=== PATIENT | male | born 1970 | race Two or more races ===

== ENCOUNTER 2017-09-02 17:52 | Emergency (ER) | payer OTHER ==
[~2017-09-02] VITALS: Ht 152.4 cm; Wt 65.8 kg
--- NOTE | 2017-09-02 18:05 | NUR ---
Pt states he fell backwards in the shower around 1030 and hit his head, denies LOC, c/o 1-10/19 pain. Pt has hematoma on left rear side of head, PERRLA. Pt denies numbness/tingling, CP, SOB, dizziness, n/v, no other complaints, no distress noted.
[2017-09-02 18:45] VITALS: BP 140/92
== END 2017-09-02 19:08 | disposition home or self-care (01) ==
LOC: ER 17:56
DX: S09.90XA Unspecified injury of head, initial encounter (principal); I10 Essential (primary) hypertension; R51 Headache; W01.198A Fall on same level from slipping, tripping and stumbling with subsequent striking against other object, initial encounter; Y93.E1 Activity, personal bathing and showering; Y92.89 Other specified places as the place of occurrence of the external cause; Y99.8 Other external cause status
CPT/HCPCS: 70450; 99284; A4606; Z7610